=== PATIENT | male | born 1985 | race African-American/Black ===

== ENCOUNTER 2021-08-07 06:10 | Inpatient (IN) ==
[2021-08-07 10:23] LABS: Basophils % 0.4 %; Eosinophils # 0.1 K/mcL (0.0-0.6); Hematocrit 31.4 % (37.5-50.1); Hemoglobin 9.8 g/dL (12.9-16.9); Lymphocytes % 17.9 %; Mean Corpuscular HGB Conc 31.2 g/dL (31.6-35.5); Mean Corpuscular Hemoglobin 28.7 pg (28.0-33.3); Mean Corpuscular Volume 91.8 fL (83.0-100.0); Mean Platelet Volume 9.6 fL (9.4-12.4); Monocytes # 0.6 K/mcL (0.0-1.3); Monocytes % 5.4 %; Neutrophils # 8.2 K/mcL (1.6-8.9); Platelet Count 207 K/mcL (140-400); Red Blood Count 3.42 M/mcL (4.19-5.50); Red Cell Distribution Width 13.5 % (11.5-14.5); Segmented Neutrophils % 74.3 %
[2021-08-07 10:38] LABS: Acetaminophen < 10 mcg/mL (10-20); Alanine Aminotransferase 20 Units/L (7-52); Albumin 4.1 g/dL (3.5-5.7); Albumin/Globulin Ratio 1.3 (1.1-2.2); Alkaline Phosphatase 56 Units/L (34-104); Aspartate Amino Transferase 24 Units/L (13-39); BUN/Creatinine Ratio 14 (6-26); Bilirubin,Direct 0.1 mg/dL (0.0-0.2); Bilirubin,Indirect 0.6 mg/dL (0.0-1.0); Bilirubin,Total 0.7 mg/dL (0.3-1.0); Blood Urea Nitrogen 13 mg/dL (6-20); Calcium 8.7 mg/dL (8.6-10.3); Carbon Dioxide 26 mEq/L (23-29); Chloride 94 mEq/L (98-107); Ethanol < 10 mg/dL (Less than 10); Globulin 3.2 g/dL (2.4-3.5); Glucose 96 mg/dL (70-105); Osmolality,Calculated 270 (280-300); Potassium 4.2 mEq/L (3.5-5.1); Salicylate < 2.5 mg/dL (15.0-30.0); Sodium 130 mEq/L (136-145); Total Protein 7.3 g/dL (6.4-8.9); eGFR For African Americans > 60 (> 60); eGFR For Non-African Americans > 60 (> 60)
[2021-08-07] MEDS ORDERED: *HR* LORazepam 1 MG TABLET PO ONE (11:43)
[2021-08-07 11:59] LABS: Bacteria,Urine Few per hpf (None-Few); Bilirubin,Urine Negative (Negative); Blood,Urine Negative (Negative); Clarity,Urine Clear (Clear); Color,Urine Yellow (Yellow); Glucose,Urine (UA) Normal (Normal); Ketones,Urine 60 mg/dL (Negative); Leukocyte Esterase,Urine Negative (Negative); Mucus,Urine Few per lpf (None-Few); Nitrite,Urine Negative (Negative); PH,Urine 5.5 pH Units (5.0-8.0); Protein,Urine 30 mg/dL (Neg-Trace); RBC,Urine 0-3 per hpf (0-3); Specific Gravity,Urine 1.028 (1.010-1.025); Squamous Epithelial Cell,Urine Few per hpf (None-Few); Urobilinogen,Urine Normal (Normal); WBC,Urine 0-3 per hpf (0-3)
[2021-08-07 12:28] LABS: Amphetamine Screen,Urine Positive ng/mL (Cutoff=1000); Barbiturate Screen,Urine Negative ng/mL (Cutoff=200); Benzodiazepines Screen,Urine Negative ng/mL (Cutoff=200); Cannabinoid Screen,Urine Positive ng/mL (Cutoff = 50); Cocaine Screen,Urine Negative ng/mL (Cutoff= 300); Opiate Screen,Urine Negative ng/mL (Cutoff=300); Phencyclidine Screen,Urine Negative ng/mL (Cutoff=25)
[2021-08-08 05:38] LABS: Influenza A PCR Negative (Negative); Influenza B PCR Negative (Negative); Resp. Syncytial Virus PCR Negative (Negative)
[2021-08-08 05:45] LABS: SARS-CoV-2 by PCR (In House) Negative (Negative)
[2021-08-08] MEDS ORDERED: Haloperidol Lactate 5 MG/ML VIAL IM PRN (10:02)
[2021-08-08] MEDS ORDERED: MOM Conc 10 ML UD.LIQ PO PRN (10:02)
[2021-08-08] MEDS ORDERED: haloperidoL 5 MG TABLET PO PRN (10:02)
[2021-08-08] MEDS ORDERED: hydrOXYzine pamoate 25 MG CAPSULE PO PRN (10:02)
[2021-08-08] MEDS ORDERED: *HR* LORazepam 1 MG TABLET PO PRN (10:02)
[2021-08-08] MEDS ORDERED: Acetaminophen 325 MG TABLET PO PRN (10:02)
[2021-08-08] MEDS ORDERED: Mag Hydrox/Al Hydrox/Simeth 30 ML UDC PO PRN (10:02)
[2021-08-08] MEDS ORDERED: *HR* LORazepam 2 MG/ML VIAL IM PRN (10:02)
[2021-08-08] MEDS ORDERED: traZODone 50 MG TABLET PO PRN (10:02)
[2021-08-08] MEDS ORDERED: cloNIDine HCL 0.1 MG TABLET PO PRN (10:05)
[2021-08-08] MEDS: Nicotine 21 MG PATCH.TD24 TD SCH (11:26)
[2021-08-08] MEDS: OLANZapine 5 MG TAB.RAPDIS PO SCH ×2 (11:30→20:34)
[2021-08-08] MEDS: hydrOXYzine pamoate 25 MG CAPSULE PO SCH ×2 (11:31→20:34)
[2021-08-09] MEDS: Nicotine 21 MG PATCH.TD24 TD SCH (11:06)
[2021-08-09] MEDS: hydrOXYzine pamoate 25 MG CAPSULE PO SCH (11:06)
[2021-08-09] MEDS: OLANZapine 5 MG TAB.RAPDIS PO SCH (11:06)
[2021-08-09 11:12] VITALS: BP 121/79; PULSE 105; TEMP 97.7; O2SAT 99
== END 2021-08-09 12:45 | disposition home or self-care (01) | DRG 817 ==
LOC: EMEROOARM 06:10 → 1ANU 08-08 09:44
PROVIDERS: ADMIT Psychiatry & Neurology Psychiatry; ATTEND Psychiatry & Neurology Psychiatry

== ENCOUNTER 2021-12-25 14:47 | Inpatient (IN) ==
[2021-12-25 16:23] LABS: Basophils # 0.1 K/mcL (0.0-0.2); Basophils % 0.7 %; Eosinophils # 0.1 K/mcL (0.0-0.6); Eosinophils % 1.1 %; Hematocrit 35.4 % (37.5-50.1); Hemoglobin 10.4 g/dL (12.9-16.9); Immature Granulocytes % 0.5 % (0-4); Lymphocytes # 1.9 K/mcL (0.6-4.6); Mean Corpuscular HGB Conc 29.4 g/dL (31.6-35.5); Mean Corpuscular Volume 81.8 fL (83.0-100.0); Mean Platelet Volume 9.9 fL (9.4-12.4); Monocytes # 0.9 K/mcL (0.0-1.3); Monocytes % 9.1 %; Neutrophils # 7.1 K/mcL (1.6-8.9); Platelet Count 311 K/mcL (140-400); Red Blood Count 4.33 M/mcL (4.19-5.50); Red Cell Distribution Width 16.6 % (11.5-14.5); Segmented Neutrophils % 69.6 %; White Blood Count 10.1 K/mcL (4.3-11.1)
[2021-12-25 16:37] LABS: BUN/Creatinine Ratio 25 (6-26); Blood Urea Nitrogen 14 mg/dL (6-20); Calcium 9.6 mg/dL (8.6-10.3); Carbon Dioxide 29 mEq/L (23-29); Chloride 101 mEq/L (98-107); Glucose 101 mg/dL (70-105); Osmolality,Calculated 285 (280-300); Potassium 4.6 mEq/L (3.5-5.1); Sodium 137 mEq/L (136-145); eGFR For African Americans > 60 (> 60); eGFR For Non-African Americans > 60 (> 60)
[2021-12-25] MEDS ORDERED: Piperacillin/Tazobactam 3.375 GM in 0.9 % Sodium Chloride Mini Bag 100 ML IVPB ONE (18:19)
[2021-12-25] MEDS ORDERED: 0.9 % Sodium Chloride 1,000 ML IVC ONE (18:37)
[2021-12-25] MEDS ORDERED: Naloxone 0.4 MG/ML INJ IVP PRN (19:23)
[2021-12-25] MEDS ORDERED: Ondansetron ODT 4 MG TAB.RAPDIS SL PRN (19:23)
[2021-12-25] MEDS ORDERED: Melatonin 3 MG TABLET PO PRN (19:23)
[2021-12-25] MEDS ORDERED: Perflutren Lipid Microsphere 1.3 ML in 0.9 % Sodium Chloride 8.7 ML IVP PRN (19:33)
[2021-12-25 19:53] LABS: INR 1.5; Prothrombin Time 16.3 Seconds (9.4-12.1)
[2021-12-25 19:56] LABS: Activated Partial Thrombo Time 30.7 Seconds (26.0-36.0)
[2021-12-25 20:01] LABS: % Iron Saturation 8 % (20-55); Alanine Aminotransferase 23 Units/L (7-52); Albumin 3.6 g/dL (3.5-5.7); Albumin/Globulin Ratio 0.9 (1.1-2.2); Alkaline Phosphatase 185 Units/L (34-104); Aspartate Amino Transferase 17 Units/L (13-39); Bilirubin,Direct 0.1 mg/dL (0.0-0.2); Bilirubin,Indirect 0.6 mg/dL (0.0-1.0); Bilirubin,Total 0.7 mg/dL (0.3-1.0); C-Reactive Protein 154 mg/L (Less than 10); Globulin 4.2 g/dL (2.4-3.5); Iron 22 mcg/dL (65-175); Magnesium 1.7 mg/dL (1.6-2.6); Phosphorous 6.1 mg/dL (2.7-4.5); Total Protein 7.8 g/dL (6.4-8.9); Transferrin 194 mg/dL (203-362); Troponin I < 0.03 ng/mL (< 0.04)
[2021-12-25 20:18] LABS: Ferritin 362 ng/mL (20-250)
[2021-12-25 20:20] LABS: Adenovirus Not Detected (Not Detect); Bordetella Pertussis Not Detected (Not Detect); Chlamydophila pneumoniae Not Detected (Not Detect); Coronavirus 229E Not Detected (Not Detect); Coronavirus HKU1 Not Detected (Not Detect); Coronavirus NL63 Not Detected (Not Detect); Coronavirus OC43 Not Detected (Not Detect); Human Metapneumovirus Not Detected (Not Detect); Human Rhinovirus/Enterovirus Not Detected (Not Detect); Influenza A Subtype 2009 H1 Not Detected (Not Detect); Influenza B Not Detected (Not Detect); Mycoplasma pneumoniae Not Detected (Not Detect); Parainfluenza Virus 1 Not Detected (Not Detect); Parainfluenza Virus 2 Not Detected (Not Detect); Parainfluenza Virus 3 Not Detected (Not Detect); Parainfluenza Virus 4 Not Detected (Not Detect); Respiratory Syncytial Virus Not Detected (Not Detect); SARS-CoV-2 Not Detected (Not Detect)
[2021-12-25] MEDS: Gabapentin 100 MG CAPSULE PO SCH (20:48)
[2021-12-25] MEDS: OLANZapine 5 MG TAB.RAPDIS PO SCH (20:48)
[2021-12-25] MEDS ORDERED: Vancomycin (wt based) 1,000 MG VIAL IVPB SCH (21:00)
[2021-12-25] MEDS ORDERED: 0.9 % Sodium Chloride 1,000 ML IVC SCH (22:45)
[2021-12-26 02:09] LABS: Bilirubin,Urine Negative (Negative); Blood,Urine Negative (Negative); Clarity,Urine Clear (Clear); Color,Urine Yellow (Yellow); Glucose,Urine (UA) Normal (Normal); Ketones,Urine Negative (Negative); Leukocyte Esterase,Urine Negative (Negative); Nitrite,Urine Negative (Negative); Protein,Urine Trace mg/dL (Neg-Trace); Specific Gravity,Urine > 1.030 (1.010-1.025)
[2021-12-26 02:22] LABS: Amphetamine Screen,Urine Negative ng/mL (Cutoff=1000); Barbiturate Screen,Urine Negative ng/mL (Cutoff=200); Benzodiazepines Screen,Urine Negative ng/mL (Cutoff=200); Cannabinoid Screen,Urine Positive ng/mL (Cutoff = 50); Cocaine Screen,Urine Negative ng/mL (Cutoff= 300); Opiate Screen,Urine Negative ng/mL (Cutoff=300); Phencyclidine Screen,Urine Negative ng/mL (Cutoff=25)
[2021-12-26] MEDS ORDERED: Acetaminophen 325 MG TABLET PO PRN (02:48)
[2021-12-26] MEDS ORDERED: Isovue-370 500 ML BOTTLE IVP ONE (03:46)
[2021-12-26] MEDS: Piperacillin/Tazobactam 3.375 GM in 0.9 % Sodium Chloride Mini Bag 100 ML IVPB SCH ×3 (04:32→21:28)
[2021-12-26] MEDS ORDERED: Ketorolac 30 MG/ML VIAL IVP ONE (05:04)
[2021-12-26 05:38] LABS: Basophils % 0.5 %; Eosinophils # 0.1 K/mcL (0.0-0.6); Eosinophils % 0.9 %; Hematocrit 28.8 % (37.5-50.1); Immature Granulocytes % 0.4 % (0-4); Lymphocytes # 1.3 K/mcL (0.6-4.6); Lymphocytes % 16.4 %; Mean Corpuscular HGB Conc 30.2 g/dL (31.6-35.5); Mean Corpuscular Hemoglobin 24.2 pg (28.0-33.3); Mean Platelet Volume 10.9 fL (9.4-12.4); Monocytes # 0.7 K/mcL (0.0-1.3); Neutrophils # 5.9 K/mcL (1.6-8.9); Platelet Count 282 K/mcL (140-400); Red Cell Distribution Width 16.5 % (11.5-14.5); Segmented Neutrophils % 72.8 %; White Blood Count 8.1 K/mcL (4.3-11.1)
[2021-12-26 05:39] LABS: Hemoglobin 8.7 g/dL (12.9-16.9)
[2021-12-26 05:48] LABS: BUN/Creatinine Ratio 25 (6-26); Blood Urea Nitrogen 14 mg/dL (6-20); Calcium 9.3 mg/dL (8.6-10.3); Carbon Dioxide 24 mEq/L (23-29); Chloride 103 mEq/L (98-107); Glucose 105 mg/dL (70-105); Osmolality,Calculated 279 (280-300); Potassium 4.8 mEq/L (3.5-5.1); Sodium 134 mEq/L (136-145); eGFR For African Americans > 60 (> 60); eGFR For Non-African Americans > 60 (> 60)
[2021-12-26] MEDS ORDERED: 0.9 % Sodium Chloride 1,000 ML IVC ONE ×2 (05:49→07:42)
[2021-12-26] MEDS ORDERED: *HR* Heparin 5,000 UNIT/ML VIAL SQ SCH (06:00)
[2021-12-26 06:12] LABS: Folate 14.9 ng/mL (3.0-16.0)
[2021-12-26] MEDS ORDERED: *HR* Heparin 5,000 UNIT/ML VIAL IVP PRN (06:27)
[2021-12-26] MEDS ORDERED: Vancomycin (wt based) 1,000 MG VIAL IVPB SCH (06:27)
[2021-12-26] MEDS ORDERED: *HR* Heparin 5,000 UNIT/ML VIAL IVP ONE (06:27)
[2021-12-26 06:54] LABS: Hematocrit 30.4 % (37.5-50.1)
[2021-12-26] MEDS ORDERED: Cyanocobalamin (B-12) 1,000 MCG/ML VIAL SQ ONE (08:17)
[2021-12-26] MEDS: *HR* Buprenorphine HCl 8 MG TAB.SUBL SL SCH (08:44)
[2021-12-26] MEDS: Gabapentin 100 MG CAPSULE PO SCH ×3 (08:44→21:25)
[2021-12-26] MEDS: OLANZapine 5 MG TAB.RAPDIS PO SCH ×2 (08:44→21:25)
[2021-12-26 09:05] LABS: Hematocrit 28.2 % (37.5-50.1); Hemoglobin 8.4 g/dL (12.9-16.9); Mean Corpuscular HGB Conc 29.8 g/dL (31.6-35.5); Mean Corpuscular Hemoglobin 24.1 pg (28.0-33.3); Mean Corpuscular Volume 80.8 fL (83.0-100.0); Mean Platelet Volume 10.6 fL (9.4-12.4); Platelet Count 258 K/mcL (140-400); Red Blood Count 3.49 M/mcL (4.19-5.50); Red Cell Distribution Width 16.7 % (11.5-14.5)
[2021-12-26 09:11] LABS: Heparin anti-factor XA UFH < 0.04 IU/mL (0.30-0.70); INR 1.5; Prothrombin Time 17.2 Seconds (9.4-12.1)
[2021-12-26] MEDS: Heparin 25,000UNIT/250ML 1/2NS 25,000 UNIT/250 ML IV.SOLN IVC SCH (09:37)
[2021-12-26] MEDS: Micafungin 100 MG in 0.9 % Sodium Chloride Mini Bag 100 ML IVPB SCH (13:22)
[2021-12-26 14:29] VITALS: O2SAT 97
[2021-12-26] MEDS ORDERED: *HR* Heparin 5,000 UNIT/ML VIAL ONE (15:31)
[2021-12-26] MEDS: Nicotine 7 MG PATCH.TD24 TD SCH (17:44)
[2021-12-26] MEDS: Ipratropium/Albuterol Neb 3 ML IH SCH (22:43)
[2021-12-27] MEDS: *HR* Heparin 5,000 UNIT/ML VIAL IVP PRN ×3 (00:18→13:42)
[2021-12-27] MEDS: Heparin 25,000UNIT/250ML 1/2NS 25,000 UNIT/250 ML IV.SOLN IVC SCH (02:10)
[2021-12-27] MEDS: Ipratropium/Albuterol Neb 3 ML IH SCH ×3 (03:49→15:47)
[2021-12-27] MEDS: Piperacillin/Tazobactam 3.375 GM in 0.9 % Sodium Chloride Mini Bag 100 ML IVPB SCH ×2 (05:30→12:02)
[2021-12-27 05:38] LABS: Hematocrit 26.6 % (37.5-50.1); Hemoglobin 8.1 g/dL (12.9-16.9); Mean Corpuscular HGB Conc 30.5 g/dL (31.6-35.5); Mean Corpuscular Hemoglobin 24.3 pg (28.0-33.3); Mean Corpuscular Volume 79.9 fL (83.0-100.0); Mean Platelet Volume 10.2 fL (9.4-12.4); Platelet Count 215 K/mcL (140-400); Red Blood Count 3.33 M/mcL (4.19-5.50); Red Cell Distribution Width 16.3 % (11.5-14.5); White Blood Count 7.6 K/mcL (4.3-11.1)
[2021-12-27 06:02] LABS: BUN/Creatinine Ratio 25 (6-26); Blood Urea Nitrogen 13 mg/dL (6-20); Calcium 8.7 mg/dL (8.6-10.3); Carbon Dioxide 24 mEq/L (23-29); Chloride 102 mEq/L (98-107); Glucose 103 mg/dL (70-105); Osmolality,Calculated 274 (280-300); Sodium 132 mEq/L (136-145); eGFR For African Americans > 60 (> 60); eGFR For Non-African Americans > 60 (> 60)
[2021-12-27] MEDS ORDERED: Vancomycin 1,500 MG/265 ML IV.SOLN IVPB SCH (08:00)
[2021-12-27] MEDS ORDERED: Vancomycin 1,250 MG/262.5 ML IV.SOLN IVPB SCH (08:00)
[2021-12-27] MEDS: Gabapentin 100 MG CAPSULE PO SCH ×3 (09:47→14:47)
[2021-12-27] MEDS: *HR* Buprenorphine HCl 8 MG TAB.SUBL SL SCH (09:47)
[2021-12-27] MEDS: OLANZapine 5 MG TAB.RAPDIS PO SCH (09:47)
[2021-12-27] MEDS: Nicotine 7 MG PATCH.TD24 TD SCH (09:56)
[2021-12-27] MEDS: Micafungin 100 MG in 0.9 % Sodium Chloride Mini Bag 100 ML IVPB SCH (09:57)
[2021-12-27 10:31] VITALS: BP 134/76; PULSE 117; TEMP 99.1
== END 2021-12-27 16:04 | disposition short-term general hospital (02) | DRG 720 ==
LOC: EMEROOARM 14:47 → 2NENU 14:47 → SUATTDRO 18:44 → 2NENU 20:21
PROVIDERS: ADMIT Internal Medicine; ATTEND Internal Medicine